=== PATIENT | female | born 1945 | race Hispanic/Latino ===

== ENCOUNTER 2019-03-30 14:13 | Outpatient (CLI) | payer MEDICARE, OTHER ==
--- NOTE | 2019-03-30 14:42 | XRay Report ---
CHEST 2 VIEWS INDICATION: ACUTE BACTERIAL BRONCHITIS/COUGH. COMPARISON: None. FINDINGS: Support devices: None. Heart: Within normal limits. Pulmonary vasculature: Normal. Lungs/pleura: Patchy airspace disease in the left lower lobe without consolidation. The rest of the l ungs are clear. No pleural effusion. No pneumothorax. Additional findings: None. IMPRESSION: 1. Left lower lobe pneumonia. Signer Name: Rory Escobar MD Signed: 03/30/2019 2:38 PM Workstation Name: [id number]
== END 2019-03-30 14:14 | disposition home or self-care (01) ==
LOC: SPVIMAG 14:13
PROVIDERS: ATTEND Internal Medicine
DX: J18.1 Lobar pneumonia, unspecified organism (principal); J20.8 Acute bronchitis due to other specified organisms
CPT/HCPCS: 71046

== ENCOUNTER 2019-04-23 10:48 | Outpatient (CLI) | payer MEDICARE, OTHER ==
--- NOTE | 2019-04-23 11:46 | XRay Report ---
CHEST 2 VIEWS INDICATION / CLINICAL INFORMATION: PNEUMONIA, BACTERIAL. COMPARISON: 03/30/2019 FINDINGS: SUPPORT DEVICES: None. HEART / MEDIASTINUM: No significant abnormality. LUNGS / PLEURA: No significant pulmonary or pleural abnormality. No pneumothorax. ADDITIONAL FINDINGS: No significant additional findings. IMPRESSION: Left lower lobe pneumonia has resolved. On today's examination, there is no acute disease. Signer Name: Hung Eugene MD FACBartolome Signed: 04/23/2019 11:42 AM Workstation Name: [id number]
== END 2019-04-23 10:49 | disposition home or self-care (01) ==
LOC: SPVIMAG 10:48
PROVIDERS: ATTEND Internal Medicine
DX: J15.9 Unspecified bacterial pneumonia (principal)
CPT/HCPCS: 71046

== ENCOUNTER 2019-08-04 10:29 | Outpatient (CLI) | payer MEDICARE, OTHER ==
--- NOTE | 2019-08-04 13:52 | XRay Report ---
CHEST 2 VIEWS INDICATION: ACUTE BACTERIAL BRONCHITIS. COMPARISON: 04/23/2019 FINDINGS: Support devices: None. Heart: Within normal limits. Pulmonary vasculature: Normal. Lungs/pleura: No acute air space or interstitial disease. No pneumothorax. Additional findings: Scoliosis and degenerative change in the spine. IMPRESSION: 1. No acute findings. Signer Name: Rory Escobar MD Signed: 08/04/2019 1:48 PM Workstation Name: [id number]
== END 2019-08-04 10:30 | disposition home or self-care (01) ==
LOC: SPVIMAG 10:29
PROVIDERS: ATTEND Internal Medicine
DX: J20.8 Acute bronchitis due to other specified organisms (principal)
CPT/HCPCS: 71046